=== PATIENT | female | born 1960 | race African-American/Black ===

== ENCOUNTER 2020-10-04 07:10 | Emergency (ER) | payer OTHER, MEDICAID ==
[~2020-10-04] VITALS: Ht 165.1 cm; Wt 143.8 kg
[2020-10-04] MEDS ORDERED: ZESTRIL20 MG PO (07:22)
[2020-10-04] MEDS ORDERED: ASPIRIN EC325 M1 PO (07:22)
[2020-10-04] MEDS ORDERED: FLEXERIL PO (07:22)
[2020-10-04] MEDS ORDERED: PROAIR HFA8.5 GM INH (07:23)
[2020-10-04] MEDS ORDERED: NEURONTIN 300M300 M2 PO (07:23)
[2020-10-04] MEDS ORDERED: PREVACID30 MG PO (07:23)
[2020-10-04] MEDS ORDERED: VITAMIN D21250 MCG PO (07:23)
[2020-10-04] MEDS ORDERED: HYDROCODON-ACE1 EAC5 PO (07:24)
[2020-10-04 07:41] LABS: ABSOLUTE BASOPHILS 0.1 thou/uL (0.0-0.2); ABSOLUTE EOSINOPHILS 0.1 thou/uL (0.0-0.7); ABSOLUTE LYMPHOCYTES 1.7 thou/uL (0.8-5.3); ABSOLUTE MONOCYTES 0.8 thou/uL (0.0-1.2); ABSOLUTE NEUTROPHILS 10.5 thou/uL (1.6-8.1); BASOPHILS 0.7 %; EOSINOPHILS 0.4 %; HEMATOCRIT 37.1 % (37.0-47.0); MCH 29.1 pg (26.0-34.0); MCHC 32.4 g/dL (28.0-37.0); MCV 89.8 fL (80.0-100.0); MONOCYTES 6.4 %; MPV 8.2 fl. (7.2-11.1); NUCLEATED RBCS 0 /100WBC; PLATELET COUNT* 297 thou/uL (150-400); POLYS 79.5 %; RBC 4.13 mil/uL (4.20-5.00); RDW-CV 16.2 % (10.5-14.5); WBC 13.3 thou/uL (4.0-11.0)
[2020-10-04 07:53] LABS: CALCIUM 8.9 mg/dL (8.5-10.1); CREATININE 2.3 mg/dL (0.6-1.3); POTASSIUM 5.1 mmol/L (3.5-5.1)
[2020-10-04 07:57] LABS: ALBUMIN 3.3 g/dL (3.4-5.0); TOTAL BILIRUBIN 0.6 mg/dL (<0.1-1.0); TOTAL PROTEIN 8.3 g/dL (6.4-8.2)
[2020-10-04 09:12] LABS: URINE BILIRUBIN NEGATIVE (Negative); URINE BLOOD 3+ (Negative); URINE CLARITY CLEAR; URINE COLOR YELLOW; URINE GLUCOSE-RANDOM NEGATIVE (Negative); URINE KETONES NEGATIVE (Negative); URINE LEUKOCYTES-REFLEX TRACE (Negative); URINE NITRITE-REFLEX NEGATIVE (Negative); URINE PROTEIN TRACE (Negative); URINE SPECIFIC GRAVITY >= 1.030 (1.005-1.030); URINE UROBILINOGEN 0.2 E.U./dl (0.2-1.0)
[2020-10-04 09:34] LABS: CELLULAR CASTS 0-3 Few /LPF (None Seen); CRYSTALS None Seen /LPF (None Seen); FINE GRANULAR CASTS 0-3 Few /LPF (None Seen); HYALINE CASTS 0-3 Few /LPF (None Seen); SQUAMOUS 0-3 Few /LPF (0-3); URINE RBC 0-2 Rare /HPF (0-2); URINE WBC-REFLEX 0-5 Rare /HPF (0-5)
--- NOTE | 2020-10-04 09:45 | EKG ---
[place] [address] ELECTROCARDIOGRAM REPORT Name: ALAN OLIVER Room: [employer]#: [id number] Admission: 10/04/20 Attend Phys: Discharge: Date of : 60 Date of Service: 10/04/20739 Report #: [id number] THIS REPORT FOR: //name// [facility] ED Test Date: 2020-10-04 Test Time: 07:40:17 Pat Name: ALAN OLIVER Department: Room: Gender: F Circular Stuffer: : 1960 Requested By: Robert Menjivar Order Number: [id number] MD: Sukhjinder Stovall Measurements Intervals [place] Rate: 98 P: 17 [place]: 152 QRS: 28 QRSD: 90 T: 52 QT: 328 QTc: 419 Interpretive Statements Sinus rhythm No previous ECG available for comparison Electronically Signed On 10-04-2020 9:45:46 CDT by Sukhjinder Stovall [email or web address] <ELECTRONICALLY SIGNED> By: Sukhjinder Stovall MD, [facility] 10/04/20 0945 0740 Sukhjinder Stovall MD, FACC /EPI
[2020-10-04 10:30] VITALS: BP 101/30
== END 2020-10-04 10:32 | disposition home or self-care (01) ==
LOC: M.ERS 07:10
PROVIDERS: Family Medicine
DX: R10.30 Lower abdominal pain, unspecified (principal); I10 Essential (primary) hypertension; M19.90 Unspecified osteoarthritis, unspecified site; J44.9 Chronic obstructive pulmonary disease, unspecified; I42.9 Cardiomyopathy, unspecified; F17.210 Nicotine dependence, cigarettes, uncomplicated; Z79.51 Long term (current) use of inhaled steroids; Z79.891 Long term (current) use of opiate analgesic; Z79.899 Other long term (current) drug therapy; Z79.82 Long term (current) use of aspirin; Z88.5 Allergy status to narcotic agent